=== PATIENT | female | born 1985 | race Caucasian/White ===

== ENCOUNTER 2017-11-21 20:26 | Outpatient (CLI) | payer MEDICAID | END 2017-11-22 00:01 | disposition home or self-care (01) | LOC: OBT 20:26 → L-D 20:28 | DX: O36.8130 Decreased fetal movements, third trimester, not applicable or unspecified (principal); Z3A.31 31 weeks gestation of pregnancy | CPT/HCPCS: 76818 ==

== ENCOUNTER 2018-01-01 08:34 | Emergency (ER) | payer MEDICAID | END 2018-01-01 09:50 | disposition home or self-care (01) | LOC: FTE 08:34 | DX: O99.519 Diseases of the respiratory system complicating pregnancy, unspecified trimester (principal); J06.9 Acute upper respiratory infection, unspecified; Z3A.00 Weeks of gestation of pregnancy not specified | CPT/HCPCS: 99282; Z7502 ==

== ENCOUNTER 2019-05-07 13:28 | Emergency (ER) | payer MEDICAID ==
[2019-05-07] MEDS: LORAZEPAM 1 MG TAB PO (14:29)
[2019-05-07] MEDS: ACETAMINOPHEN 325 MG TAB PO (14:29)
[2019-05-07 14:33] LABS: URINE BLOOD (Dip) POC Negative (NEGATIVE); URINE GLUCOSE (Dip) POC Negative (NEGATIVE); URINE KETONES (Dip) POC Negative (NEGATIVE); URINE LEUKOCYTE EST (Dip) POC Negative (NEGATIVE); URINE NITRITE (Dip) POC Negative (NEGATIVE); URINE TOTAL PROTEIN POC 1+ (NEGATIVE)
[2019-05-07 14:43] LABS: ADD MAN DIFF? NO
[2019-05-07 14:47] LABS: WHITE BLOOD COUNT 15.7 10^3/ul (4.8-10.8)
[2019-05-07 14:47] LABS: ABNORMAL IP MESSAGE 1; BASOPHILS % 0.3 % (0.0-2.0); EOSINOPHILS % 0.2 % (0.0-7.0); HEMATOCRIT 35.8 % (37.0-47.0); LYMPHOCYTES # 2.7 10^3/ul (0.8-2.9); LYMPHOCYTES % 16.9 % (15.0-51.0); MEAN CORPUSCULAR HEMOGLOBIN 28.8 pg (29.0-33.0); MEAN CORPUSCULAR HGB CONC 33.5 g/dl (32.0-37.0); MEAN CORPUSCULAR VOLUME 86.1 fl (82.0-101.0); MEAN PLATELET VOLUME 10.7 fl (7.4-10.4); MONOCYTE # 1.8 10^3/ul (0.3-0.9); MONOCYTES % 11.4 % (0.0-11.0); NEUTROPHIL # 11.1 10^3/ul (1.6-7.5); NEUTROPHILS % 70.7 % (39.0-77.0); PLATELET COUNT 338 10^3/UL (140-415); RED BLOOD COUNT 4.16 10^6/ul (4.20-5.40); RED CELL DISTRIBUTION WIDTH 13.3 % (11.5-14.5)
[2019-05-07 14:51] LABS: POSITIVE DIFF @See below
[2019-05-07 15:00] LABS: ANION GAP 8 (5-13); BLOOD UREA NITROGEN 6 mg/dl (7-20); CALCIUM 9.5 mg/dl (8.4-10.2); CARBON DIOXIDE 28 mmol/L (21-31); CHLORIDE 106 mmol/L (97-110); CREATININE 0.63 mg/dl (0.44-1.00); Estimated GFR > 60 mL/min (>60); GLUCOSE 95 mg/dl (70-220); POTASSIUM 4.2 mmol/L (3.5-5.1); SODIUM 142 mmol/L (135-144)
[2019-05-07] MEDS: CEFTRIAXONE 1 GM INJ IM (15:42)
[2019-05-07] MEDS: LIDOCAINE 1% (MPF) 5 ML VIAL INFIL (15:42)
== END 2019-05-07 15:56 | disposition home or self-care (01) ==
LOC: FTE 13:28
DX: O91.23 Nonpurulent mastitis associated with lactation (principal); R00.2 Palpitations; X34.XXXA Earthquake, initial encounter
CPT/HCPCS: 36415; 80048; 81003; 81025; 85025; 93005; 96372; 99284-25

== ENCOUNTER 2019-05-21 19:28 | Emergency (ER) | payer MEDICAID ==
[2019-05-21 20:31] LABS: URINE PH (Dip) POC 6.5 (5.0-8.5)
[2019-05-21 20:31] LABS: URINE BLOOD (Dip) POC Trace-intact (NEGATIVE); URINE GLUCOSE (Dip) POC Negative (NEGATIVE); URINE KETONES (Dip) POC Negative (NEGATIVE); URINE LEUKOCYTE EST (Dip) POC Negative (NEGATIVE); URINE NITRITE (Dip) POC Negative (NEGATIVE); URINE TOTAL PROTEIN POC Negative (NEGATIVE)
[2019-05-21] MEDS: LIDOCAINE/MYLANTA 40 ML BTL PO (20:35)
[2019-05-21] MEDS: BELLADONNA/PHENOBARBITAL TAB PO (20:35)
[2019-05-21] MEDS: ACETAMINOPHEN 500 MG TAB PO (22:13)
[2019-05-21] MEDS: ONDANSETRON (ODT) 4 MG TAB ODT (22:13)
[2019-05-21] MEDS: FAMOTIDINE 20 MG TAB PO (22:14)
== END 2019-05-21 22:51 | disposition home or self-care (01) ==
LOC: FTE 19:28
DX: K21.9 Gastro-esophageal reflux disease without esophagitis (principal)
CPT/HCPCS: 81003; 81025; 99283